=== PATIENT | male | born 1930 | race Caucasian/White ===

== ENCOUNTER 2016-12-09 12:08 | Inpatient (IN) | payer MEDICARE ==
--- NOTE | 2016-12-09 13:04 | ED PDOC ---
HPI: Altered Mental Status Time Seen by Provider: 12/09/16 12:16 Chief Complaint (Nursing): Altered Mental Status History Per: Patient, Family History/Exam Limitations: Clinical Condition Onset/Duration Of Symptoms: Unknown Onset Of Symptoms: Cannot Confirm Onset Description Of Symptoms: Confused Exacerbating Factor(s): Unknown Use Of Anticoag/Antiplatlets: No Severity: Moderate Additional History Per: Family Additional Complaint(s): per family pt lives alone, not taking care of himself, possible dementia, pt arrives covered in feces Past Medical History Reviewed: Historical Data, Nursing Documentation, Vital Signs Vital Signs: Last Vital Signs Temp 98.2 F 12/09/16 12:13 Pulse 112 H 12/09/16 12:13 Resp 16 12/09/16 12:13 BP 144/79 12/09/16 12:13 Pulse Ox 96 12/09/16 12:13 - Family History Family History: States: Unknown Family Hx - Living Arrangements Living Arrangements: Alone - Allergies Allergies/Adverse Reactions: Allergies Allergy/AdvReac Type Severity Reaction Status Date / Time No Known Allergies Allergy Verified 12/09/16 12:12 Review of Systems Review Of Systems: ROS cannot be obtained secondary to pt's inabilty to answer questions. Physical Exam - Reviewed Nursing Documentation Reviewed: Yes Vital Signs Reviewed: Yes - Physical Exam Appears: Positive for: Uncomfortable (unkept covered in feces) Head Exam: Positive for: ATRAUMATIC, NORMAL INSPECTION, NORMOCEPHALIC Eye Exam: Positive for: Normal appearance, EOMI, PERRL Neck: Positive for: Normal, Painless ROM, Supple Cardiovascular/Chest: Positive for: Chest Non Tender, Tachycardia. Negative for : Edema, Gallop, Murmur, Bradycardia Respiratory: Positive for: Normal Breath Sounds. Negative for: Decreased Breath Sounds, Accessory Muscle Use, Crackles, Rales, Rhonchi, Stridor, Wheezing Pulses-Radial (L): 2+ Pulses-Radial (R): 2+ Gastrointestinal/Abdominal: Positive for: Normal Exam, Bowel Sounds, Soft. Negative for: Tenderness Back: Positive for: Normal Inspection. Negative for: L CVA Tenderness, R CVA Tenderness Extremity: Positive for: Normal ROM. 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 Negative for : Motor/Sensory Deficits - Laboratory Results Result Diagrams: 12/09/16 13:20 12/09/16 13:20 - ECG ECG Rhythm: Positive for: Normal QRS, Normal ST Segment, Sinus Tachycardia (104) . Negative for: ST/T Changes O2 Sat by Pulse Oximetry: 96 Pulse Ox Interpretation: Normal - Radiology X-Ray: Interpreted by Mi X-Ray Interpretation: No Acute Disease - Progress ED Course And Treament: will admit for ams, ct head neg. Re-evaluation Time: 17:00 Condition: Unchanged Disposition - Clinical Impression Clinical Impression: Altered mental status - Patient ED Disposition Is Patient to be Admitted: Yes Counseled Patient/Family Regarding: Studies Performed, Diagnosis - Disposition Disposition Time: 15:00 Condition: STABLE - Pt Status Changed To: Hospital Disposition Of: Inpatient - Admit Certification Admit to Inpatient:: After my assessment, the patient will require hospitalization for at least two midnights. This is because of the severity of symptoms shown, intensity of services needed, and/or the medical risk in this patient being treated as an outpatient. - POA Present On Arrival: Poor Glycemic Control
[2016-12-09 13:39] LABS: BASO # 0.1 K/uL (0.0-0.2); BASO % 0.6 % (0.0-2.0); EOS # 0.1 K/uL (0.0-0.7); EOS % 1.6 % (0.0-4.0); HEMOGLOBIN 14.4 g/dL (12.0-18.0); LYMPH # 1.2 K/uL (1.0-4.3); LYMPH % 13.2 % (20.0-40.0); MEAN CELL VOLUME 95.8 fl (80.0-94.0); MEAN CORPUSCULAR HEMOGLOBIN 33.1 pg (27.0-31.0); MEAN CORPUSCULAR HGB CONC 34.6 g/dL (33.0-37.0); MEAN PLATELET VOLUME 9.1 fl (7.2-11.7); MONO # 0.7 K/uL (0.0-0.8); MONO % 8.2 % (0.0-10.0); NEUT # 6.9 K/uL (1.8-7.0); NEUT % 76.4 % (50.0-75.0); RBC 4.34 Mil/uL (4.40-5.90); RED CELL DISTRIBUTION WIDTH 12.9 % (11.5-14.5)
[2016-12-09 13:45] LABS: PROTHROMBIN TIME 11.4 Seconds (9.8-13.1)
[2016-12-09 13:46] LABS: PARTIAL THROMBOPLASTIN TIME 27.4 Seconds (25.6-37.1)
[2016-12-09 13:49] LABS: ALB/GLOB RATIO 1.2 (1.0-2.1); ALBUMIN 3.9 g/dL (3.5-5.0); ALT/SGPT 97 U/L (21-72); AST/SGOT 207 U/L (17-59); BLOOD UREA NITROGEN 24 mg/dl (9-20); CALCIUM 9.4 mg/dL (8.4-10.2); GFR AFRICAN-AMERICAN > 60; GFR NON-AFRICAN AMERICAN > 60; LIPASE 90 U/L (23-300)
[2016-12-09] MEDS ORDERED: Sodium Chloride 0.9% 1,000 ML IV ONE (14:11)
--- NOTE | 2016-12-09 16:52 | CT ---
PROCEDURE: CT HEAD WITHOUT CONTRAST. HISTORY: ams COMPARISON: None available. TECHNIQUE: Axial computed tomography images were obtained through the head/brain without intravenous contrast. Radiation dose: Total exam DLP = 1127.9 mGy-cm. This CT exam was performed using one or more of the following dose reduction techniques: Automated exposure control, adjustment of the mA and/or kV according to patient size, and/or use of iterative reconstruction technique. FINDINGS: HEMORRHAGE: No acute parenchymal, subarachnoid nor extra-axial hemorrhage. BRAIN: Moderate to significant diffuse/ confluent chronic periventricular white matter ischemic changes seen extending peripherally into the deep and subcortical white matter both cerebral hemispheres. There is also some extension of these changes into the white matter tracts of both basal nuclei. Note that the possibility of a small hyperacute infarct cannot be completely excluded Punctate calcifications seen right frontal subcortical white matter nonspecific. Moderate -significant generalized volume loss. VENTRICLES: No obstructive hydrocephalus. CALVARIUM: No acute calvarial fractures. . Extensive vascular calcifications within the scalp consistent with underlying IDDM PARANASAL SINUSES: Visualized paranasal are well-developed and currently well-aerated. . Mild mucosal thickening ethmoid air complex extending superiorly into the frontal sinus. There is also mild lobulated and/or polypoid like mucosal thickening left maxillary sinus. MASTOID AIR CELLS: Unremarkable as visualized. No inflammatory changes. OTHER FINDINGS: Changes of bilateral cataract surgery. . IMPRESSION: Moderate to significant diffuse/ confluent chronic periventricular white matter ischemic changes seen extending peripherally into the deep and subcortical white matter both cerebral hemispheres. There is also some extension of these changes into the white matter tracts of both basal nuclei. Note that the possibility of a small hyperacute infarct cannot be completely excluded Punctate calcifications seen right frontal subcortical white matter nonspecific. Moderate -significant generalized volume loss
[2016-12-09 22:03] LABS: BARBITURATES, UR NEGATIVE (NEGATIVE); BENZODIAZEPINES, UR NEGATIVE (NEGATIVE); OPIATES, UR NEGATIVE (NEGATIVE); PHENCYCLIDINE, UR NEGATIVE (NEGATIVE)
[2016-12-09 22:09] LABS: URINE BILIRUBIN NEGATIVE (NEGATIVE); URINE BLOOD MODERATE (NEGATIVE); URINE CLARITY CLEAR (Clear); URINE COLOR YELLOW (YELLOW); URINE GLUCOSE (UA) >=500 mg/dL (Normal); URINE LEUKOCYTE ESTERASE NEG Leu/uL (Negative); URINE NITRATE NEGATIVE (NEGATIVE); URINE PROTEIN 100 mg/dL (NEGATIVE); URINE UROBILINOGEN 0.2-1.0 mg/dL (0.2-1.0)
--- NOTE | 2016-12-09 22:55 | CARD ---
APPROVED REPORT EKG Measurement Heart [id number] <Conclusion> Sinus tachycardia with occasional premature ventricular complexes Otherwise normal ECG
[2016-12-09] MEDS ORDERED: Sodium Chloride 0.9% 1,000 ML IV SCH (23:45)
[2016-12-10 08:10] LABS: ALB/GLOB RATIO 1.1 (1.0-2.1); ALBUMIN 3.5 g/dL (3.5-5.0); ALT/SGPT 91 U/L (21-72); AST/SGOT 135 U/L (17-59); BLOOD UREA NITROGEN 24 mg/dl (9-20); CALCIUM 8.9 mg/dL (8.4-10.2); GFR AFRICAN-AMERICAN > 60; GFR NON-AFRICAN AMERICAN > 60; HDL CHOLESTEROL 48 MG/DL (30-70)
[2016-12-10 08:13] LABS: HEMOGLOBIN 13.7 g/dL (12.0-18.0); MEAN CELL VOLUME 95.5 fl (80.0-94.0); MEAN CORPUSCULAR HEMOGLOBIN 33.3 pg (27.0-31.0); MEAN CORPUSCULAR HGB CONC 34.9 g/dL (33.0-37.0); RBC 4.11 Mil/uL (4.40-5.90); RED CELL DISTRIBUTION WIDTH 12.8 % (11.5-14.5); WHITE BLOOD COUNT 7.2 K/uL (4.8-10.8)
[2016-12-10 08:21] LABS: LDL CHOLESTEROL 86 mg/dL (0-129)
[2016-12-10] MEDS: Enoxaparin 40 mg Syringe SC SCH (08:46)
[2016-12-10] MEDS: Insulin Regular 100 units/ml SC SCH ×4 (08:48→23:42)
[2016-12-10] MEDS: Bacitracin OINT 15GM TOP SCH ×3 (10:37→16:52)
[2016-12-10] MEDS: Sodium Chloride 0.9% 1,000 ML IV SCH ×2 (13:44→23:42)
--- NOTE | 2016-12-10 16:33 | CP.PCM.CON ---
History of Present Illness - History of Present Illness History of Present Illness: Mr. Martinez is an 86-year-old man with a past medical history of diabetes who was apparently found at home confused and covered in feces in poor living conditions. The patient underwent a CT scan of the head which showed diffuse atrophy and severe ischemic disease that appears to be chronic and likely represents progressive vascular dementia. Neurology was consulted to assist with the management and care. Review of Systems - Review of Systems Systems not reviewed;Unavailable: Altered Mental Status Past Patient History - Past Medical History & Family History Past Medical History?: Yes - Past Social History Smoking Status: Never Smoked - CARDIAC Hx Cardiac Disorders: No - PULMONARY Hx Respiratory Disorders: No - NEUROLOGICAL Hx Neurological Disorder: No - HEENT Hx HEENT Problems: No - RENAL Hx Chronic Kidney Disease: No - ENDOCRINE/METABOLIC Hx Endocrine Disorders: Yes Hx Diabetes Mellitus Type 1: Yes (Family states he is diabetic but does not take meds.) - HEMATOLOGICAL/ONCOLOGICAL Hx Blood Disorders: No - INTEGUMENTARY Hx Dermatological Problems: No - MUSCULOSKELETAL/RHEUMATOLOGICAL Hx Musculoskeletal Disorders: No Hx Falls: Yes - GASTROINTESTINAL Hx Gastrointestinal Disorders: No - GENITOURINARY/GYNECOLOGICAL Hx Genitourinary Disorders: No - PSYCHIATRIC Hx Psychophysiologic Disorder: No Hx Substance Use: No - SURGICAL HISTORY Hx Surgeries: No - ANESTHESIA Hx Anesthesia: No Meds Allergies/Adverse Reactions: Allergies Allergy/AdvReac Type Severity Reaction Status Date / Time No Known Allergies Allergy Verified 12/09/16 12:12 - Medications Medications: Current Medications Aspirin (Ecotrin) 81 mg PO DAILY [facility] Bacitracin (Bacitracin Oint) 1 applic TOP TID [facility] Last Admin: 12/10/16 12:50 Dose: 1 applic Enoxaparin Sodium (Lovenox) 40 mg SC DAILY MALIA PRN Reason: Protocol Last Admin: 12/10/16 08:46 Dose: 40 mg Sodium Chloride (Sodium Chloride 0.9%) 1,000 mls @ 100 mls/hr IV .Q10H [facility] Stop: 12/11/16 13:09 Last Admin: 12/10/16 13:44 Dose: 100 mls/hr Insulin Human Regular (Humulin R) 0 units SC ACCU-CHECK MALIA PRN Reason: Protocol Last Admin: 12/10/16 12:49 Dose: 2 units Lorazepam (Ativan) 0.5 mg IVP Q6 PRN PRN Reason: Agitation Physical Exam - Constitutional Appears: Unkempt - Head Exam Head Exam: ATRAUMATIC, NORMAL INSPECTION, NORMOCEPHALIC - Eye Exam Eye Exam: EOMI, Normal appearance, PERRL - ENT Exam ENT Exam: Mucous Membranes Moist, Normal Exam - Respiratory Exam Respiratory Exam: Clear to Auscultation Bilateral, NORMAL BREATHING PATTERN - Cardiovascular Exam Cardiovascular Exam: REGULAR RHYTHM, +S1, +S2 - GI/Abdominal Exam GI & Abdominal Exam: Normal Bowel Sounds, Soft. absent: Tenderness - Neurological Exam Neurological exam: Abnormal Gait, Altered, CN II-XII Intact - Expanded Neurological Exam Expanded Patient oriented to: person Cranial nerves: EOM's Intact: Normal Cerebellar Function: Finger to Nose: Normal, Heel to Santacruz: Abnormal Left, Abnormal Right Upper motor neuron: Babinski Sign: Abnormal Left, Abnormal Right Sensory exam: Lower Extremity Light Touch: Normal, Lower Extremity Pin Prick: Normal, Upper Extremity Light Touch: Normal, Upper Extremity Pin Prick: Normal Neuro motor strength exam: Left Upper Extremity: 4, Right Upper Extremity: 4, Left Lower Extremity: 4, Right Lower Extremity: 4 DTR: Achilles Tendon Left: 2+, Achilles Tendon Right: 2+, Bicep Left: 2+, Bicep Right: 2+, Brachioradialis Left: 2+, Brachioradialis Right: 2+, Patellar Left: 2 +, Patellar Right: 2+, Tricep Left: 2+, Tricep Right: 2+ - Psychiatric Exam Psychiatric exam: Agitated, Anxious - Skin Skin Exam: Dry, Intact, Normal Color, Warm Results - Vital Signs Recent Vital Signs: Last Vital Signs Temp 98 F 12/10/16 16:23 Pulse 91 H 12/10/16 16:23 Resp 20 12/10/16 16:23 BP 167/96 H 12/10/16 16:23 Pulse Ox 100 12/10/16 16:23 - Labs Result Diagrams: 12/10/16 07:00 12/10/16 07:00 Labs: Laboratory Results - last 24 hr 12/09/16 12/09/16 12/10/16 21:20 21:20 05:13 WBC RBC Hgb Hct MCV MCH MCHC RDW Plt Count Sodium Potassium Chloride Carbon Dioxide Anion Gap BUN Creatinine Est GFR ( Amer) Est GFR (Non-Af Amer) POC Glucose (mg/dL) 215 H Random Glucose Calcium Total Bilirubin AST ALT Alkaline Phosphatase Total Protein Albumin Globulin Albumin/Globulin Ratio Triglycerides Cholesterol LDL Cholesterol Direct HDL Cholesterol Vitamin B12 Urine Color Yellow Urine Clarity Clear Urine pH 6.0 Ur Specific Gratz 1.022 Urine Protein 100 Urine Glucose (UA) >=500 Urine Ketones Trace Urine Blood Moderate Urine Nitrate Negative Urine Bilirubin Negative Urine Urobilinogen 0.2-1.0 Ur Leukocyte Esterase Neg Urine RBC (Auto) 4 H Urine Microscopic WBC 2 Hyaline Casts 3-5 H Urine Opiates Screen Negative Urine Methadone Screen Negative Ur Barbiturates Screen Negative Ur Phencyclidine Scrn Negative Ur Amphetamines Screen Negative U Benzodiazepines Scrn Negative U Oth Cocaine Metabols Negative U Cannabinoids Screen Negative 12/10/16 12/10/16 12/10/16 07:00 07:00 10:52 WBC 7.2 RBC 4.11 L Hgb 13.7 Hct 39.3 MCV 95.5 H MCH 33.3 H MCHC 34.9 RDW 12.8 Plt Count 152 Sodium 140 Potassium 3.4 L Chloride 100 Carbon Dioxide 32 H Anion Gap 11 BUN 24 H Creatinine 0.9 Est GFR ( Amer) > 60 Est GFR (Non-Af Amer) > 60 POC Glucose (mg/dL) 170 H Random Glucose 185 H Calcium 8.9 Total Bilirubin 0.8 AST 135 H D ALT 91 H Alkaline Phosphatase 52 Total Protein 6.7 Albumin 3.5 Globulin 3.2 Albumin/Globulin Ratio 1.1 Triglycerides 119 Cholesterol 168 LDL Cholesterol Direct 86 HDL Cholesterol 48 Vitamin B12 637 Urine Color Urine Clarity Urine pH Ur Specific Gratz Urine Protein Urine Glucose (UA) Urine Ketones Urine Blood Urine Nitrate Urine Bilirubin Urine Urobilinogen Ur Leukocyte Esterase Urine RBC (Auto) Urine Microscopic WBC Hyaline Casts Urine Opiates Screen Urine Methadone Screen Ur Barbiturates Screen Ur Phencyclidine Scrn Ur Amphetamines Screen U Benzodiazepines Scrn U Oth Cocaine Metabols U Cannabinoids Screen - Imaging and Cardiology CT scan - head Status: Image reviewed by me, Report reviewed by me (Advanced atrophy and ischemic changes with enlarged temporal horns.) Assessment & Plan (1) Dementia Assessment and Plan: The abrupt changes in his mental status and the CT scan findings are suggestive of vascular dementia, but this could also be acute encephalopathy due to deteriorating condition or Alzheimer type dementia. MRI and MRA of the brain without contrast is recommended. Start aspirin 81 mg daily for cerebrovascular protection. Check lipids, HbA1c, TSH, B12, folate. Fluids with NS at 100 mL/ hr. DVT Px. PT/OT/ST and cognitive therapy are recommended. Thank you. Status: Acute Priority: High
--- NOTE | 2016-12-10 21:55 | HP ---
CHIEF COMPLAINT: Found in disheveled condition and altered mental status by family. HISTORY OF PRESENT ILLNESS: This is an 86-year-old male who lives alone and is not taking care of hi mself very well and has apparently a history of dementia and hypertension, but has not seek medical c are for more than 10 years as per family, who was covered in his feces in his house and found with al tered mental status. The patient was brought to the Emergency Room by family and was admitted for fu rther management. REVIEW OF SYSTEMS: At this time is negative for headache, dizziness, syncope, loss of consciousness, chest pain, shortness of breath, nausea, vomiting, diarrhea, constipation, any new joint or extremit y pain or any weakness. Review of systems of all other organ systems is unremarkable. PAST MEDICAL HISTORY: Apparently significant for dementia and hypertension. PAST SURGICAL HISTORY: Unremarkable. PERSONAL HISTORY: The patient is living alone. Denies smoking, alcohol or substance abuse. MEDICATIONS: The patient is not on any medications. ALLERGIES: The patient is apparently not allergic to any medication. FAMILY HISTORY: Noncontributory. PHYSICAL EXAMINATION: GENERAL: Well-built, well-nourished 86-year-old male in no acute distress. VITAL SIGNS: Temperature 98.2, pulse 96, respiration 18, blood pressure 156/85, saturation 97%. HEENT: Pupils reacting to light. NECK: No JVD, no thyromegaly, no lymphadenopathy, no nystagmus. Normocephalic, atraumatic skull. HEART: S1, S2 normal, regular. No significant murmur, gallop or rub is heard. LUNGS: Shows good bilateral air entry. No rales or rhonchi. ABDOMEN: Soft, nontender, no organomegaly, no fluid. Bowel sounds are plus. EXTREMITIES: No edema, no calf swelling, no tenderness. No acute ischemia. CENTRAL NERVOUS SYSTEM: The patient is awake, responsive, alert, cooperative, follows command. SKIN: Shows superficial excoriation on back, mainly , no sign of cellulitis, but does have open areas with stage II ulcers on spine and upper back on both sides. CENTRAL NERVOUS SYSTEM: The patient is awake, responsive, cooperative, follows commands, is disorien saum[place], but moves all extremities and there is no sign of any acute gross focal motor or sensory neurolo gical deficit. DIAGNOSTIC DATA: Available diagnostic data reviewed. Urine toxicology is negative. Urinalysis is u nremarkable. SMA-12 is unremarkable. Sodium 140, potassium 3.4, chloride 100, bicarbonate 32, BUN 2 4, creatinine 0.9. Accu-Cheks are 215, 172, 120. AST is 135, ALT is 91, WBC , hemoglobin 13.7, hematocrit 39.3, platelets 152. EKG shows sinus tachycardia with some APCs, but no acute ST-T valera es. 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 ADMITTING IMPRESSION: Altered mental status, dementia, mild dehydration. PLAN: As ordered. Moris hSort MD cc: [id number] TT: 12/10/2016 21:54:36 rubén
[2016-12-11] MEDS: Insulin Regular 100 units/ml SC SCH ×4 (06:04→23:16)
[2016-12-11 06:12] LABS: HEMOGLOBIN 13.4 g/dL (12.0-18.0); MEAN CELL VOLUME 95.6 fl (80.0-94.0); MEAN CORPUSCULAR HEMOGLOBIN 33.3 pg (27.0-31.0); MEAN CORPUSCULAR HGB CONC 34.8 g/dL (33.0-37.0); RBC 4.02 Mil/uL (4.40-5.90); RED CELL DISTRIBUTION WIDTH 12.6 % (11.5-14.5); WHITE BLOOD COUNT 5.6 K/uL (4.8-10.8)
[2016-12-11 06:24] LABS: ALBUMIN 3.2 g/dL (3.5-5.0); ALT/SGPT 78 U/L (21-72); AST/SGOT 77 U/L (17-59); BLOOD UREA NITROGEN 23 mg/dl (9-20); CALCIUM 8.4 mg/dL (8.4-10.2); GFR AFRICAN-AMERICAN > 60; GFR NON-AFRICAN AMERICAN > 60
--- NOTE | 2016-12-11 09:19 | PN ---
DATE: 12/11/2016 The patient is seen and examined. Interim events noted. Consults noted and appreciated. Neurology followup and intervention noted and appreciated. The patient remains on the regular medical floor wi th 1:1 observation. The patient feels okay. Denies any specific complaint. No chest pain, no short ness of breath. Denies any new pain. PHYSICAL EXAMINATION: GENERAL: The patient is in no acute distress. VITAL SIGNS: Stable, although the blood pressure remains elevated. HEART: S1, S2 normal, regular. LUNGS: Good bilateral air entry. ABDOMEN: Soft, nontender. EXTREMITIES: No edema, no calf swelling, no tenderness, no acute ischemia. CENTRAL NERVOUS SYSTEM: Essentially unchanged. SKIN: Excoriation remains uncomplicated. DIAGNOSTIC DATA: Available diagnostic data reviewed. Accu-Cheks remain elevated. Overall, the patient is clinically stable. PLAN: As ordered. Moris Short MD cc: [id number] TT: 12/11/2016 09:18:29 Confirmation # [id number] Dictation # [id number] juan
[2016-12-11] MEDS: Enoxaparin 40 mg Syringe SC SCH (09:22)
[2016-12-11] MEDS: Bacitracin OINT 15GM TOP SCH ×3 (09:22→16:34)
[2016-12-11] MEDS: Sodium Chloride 0.9% 1,000 ML IV SCH (09:25)
[2016-12-11] MEDS ORDERED: Potassium Chloride 20 mEq ER Tab PO ONE (10:12)
--- NOTE | 2016-12-11 14:41 | PQF GENQUE ---
Dr. Short, Please clarify the underlying cause of patient's altered mental status and relate that cause to the alteration in mental status: if known after the work up is completed Cardiac condition Electrolyte/metabolic imbalance Infectious process Neurologic condition Psychiatric condition Respiratory condition Other condition (please specify) Unable to determine Unknown Neuro consult:Psychiatric exam: Agitated, Anxious Impression:Dementia :The abrupt changes in his mental status and the CT scan findings are suggestive of vascular dementia , but this could also be acute encephalopathy due to deteriorating condition or Alzheimer type dementia. MRI and MRA of the brain without contrast is recommended. Start aspirin 81 mg daily for cerebrovascular protection. Check lipids, HbA1c, TSH, B12, folate. Fluids with NS at 100 mL/hr. DVT Px. PT/OT/ST and cognitive therapy are recommended. This form is a permanent part of the medical record Clarification of your documentation is requested to better reflect the severity of illness and intensity of treatment of your patient. Indicators present [] Specify: [] [] Specify: [] [] Specify: [] [] Specify: [] Location in the medical record that reflects the above clinical findings: [] Treatment Provided: [] PHYSICIAN'S RESPONSE Based on your medical judgment of the clinical indicators outlined above please clarify the following: [] Practitioner response [] If unable to determine, please check the box, sign and date. Present On Admission (POA) Indicator: [] Present at the time of admission [] Not present at the time of admission [] Clinically Undetermined In responding to this query, please exercise your independent professional judgment. The fact that a question is asked does not imply that any particular answer is desired or expected. Thank you for your clarification on this documentation. If you have any questions please call. * Thank you, Donya Fong RN BSN ext. #[phone] MTDD
[2016-12-11] MEDS: Vitamins A & D Oint UD Foilpak TOP SCH (16:34)
[2016-12-12] MEDS: Insulin Regular 100 units/ml SC SCH ×4 (06:46→23:00)
[2016-12-12 07:31] LABS: MEAN CELL VOLUME 95.5 fl (80.0-94.0); MEAN CORPUSCULAR HEMOGLOBIN 33.9 pg (27.0-31.0); MEAN CORPUSCULAR HGB CONC 35.5 g/dL (33.0-37.0); RBC 3.84 Mil/uL (4.40-5.90); RED CELL DISTRIBUTION WIDTH 12.8 % (11.5-14.5); WHITE BLOOD COUNT 5.1 K/uL (4.8-10.8)
[2016-12-12 07:42] LABS: ALBUMIN 3.2 g/dL (3.5-5.0); ALT/SGPT 73 U/L (21-72); AST/SGOT 53 U/L (17-59); BLOOD UREA NITROGEN 22 mg/dl (9-20); CALCIUM 8.7 mg/dL (8.4-10.2); GFR AFRICAN-AMERICAN > 60; GFR NON-AFRICAN AMERICAN > 60
[2016-12-12 08:36] VITALS: RESP 20
--- NOTE | 2016-12-12 08:41 | PQF GENQUE ---
Dr. 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 and: POA? OR: Unable to determine OR: Other explanation of clinical findings H and P: remains in draft: SKIN: Shows superficial excoriation on back, mainly _ ____, no sign of cellulitis, but does have open areas with stage II ulcers on spine and upper back on both sides 12/09/16@22:00:Admission Nurses notes: Pressure ulcer POA: Yes 12/11@21:00: Nurses Note: partial thickness dermis ulcer left dorsal foot 12/11/16: Wound RN: MULTIPLE AREAS OF SKIN BREAKDOWN. ASSESSMENT REVEALED, ENTIRE BACK WITH MULTIPLE HEALED AND HEALING SKIN TEARS, NO DRAINAGE, NO ODOR. RECOMMENDING TO START VITAMIN A&D OINTMENT TO ENTIRE BACK TWICE DAILY A PROTECTIVE MEASURE. ASSESSED LEFT KNEE; FOUND DRY PEELING SCAB, NO DRAINAGE, NO ODOR, RECOMMENDING TO APPLY MEDIHONEY, THEN COVERING WITH DRY DRESSING DAILY. ASSESSED BOTH LEFT GREAT TOE, DORSAL ASPECT, AND LEFT 1ST MET HEAD, DORSAL ASPECT AND FOUND DIABETIC ULCER, DRY RED BASES. RECOMMENDING TO START MEDIHONEY, THEN COVERING WITH DRY DRESSINGS DAILY. ASSESSED TO BILATERAL LOWER EXTREMETIES, INCLUDING TOES AND FOUND DIFFUSE DRY SCABS. This form is a permanent part of the medical record Clarification of your documentation is requested to better reflect the severity of illness and intensity of treatment of your patient. Indicators present [] Specify: [] [] Specify: [] [] Specify: [] [] Specify: [] Location in the medical record that reflects the above clinical findings: [] Treatment Provided: [] PHYSICIAN'S RESPONSE Based on your medical judgment of the clinical indicators outlined above please clarify the following: [] Practitioner response [] If unable to determine, please check the box, sign and date. Present On Admission (POA) Indicator: [] Present at the time of admission [] Not present at the time of admission [] Clinically Undetermined In responding to this query, please exercise your independent professional judgment. The fact that a question is asked does not imply that any particular answer is desired or expected. Thank you for your clarification on this documentation. If you have any questions please call. * Thank you, Donya Fong RN BSN ext. #[phone] MTDD
--- NOTE | 2016-12-12 08:46 | CP.PCM.CON ---
History of Present Illness - History of Present Illness History of Present Illness: Psychiatry consult CC: "I'm okay" HPI: 86-year-old Armenian man with a past medical history of diabetes, no past psychiatric history who was apparently found at home confused and covered in feces in poor living conditions. The patient underwent a CT scan of the head which showed diffuse atrophy and severe ischemic disease that appears to be chronic and likely represents progressive vascular dementia. Patient denies psychiatric symptoms to manual writer. No depression/anxiety/hallucinations/delusions/ paranoia/shun. PPHx: No past psychiatric history. PMHx: Diabetes, likely dementia ALL: NKDA SHx: . Denies drugs/etoh use. MSE: A + O x 2 (not oriented to date), calm/cooperative, speech accented, mood "okay", affect- broad, thought process- linear/coherent, thought content- no delusions, NO hallucinations/delusions. NO SI/HI. Insight/judgment- fair. Impulse control-good Impression: 86 yo male w/ h/o diabetes, no current past psychiatric history, likely w/ vascular dementia. No acute psychiatric issues at this time. -No acute psychiatric admission indicated -No acute psychotropic medications needed -Avoid benzodiazepines as they are likely to worsen his confusion -If patient has late-day confusion (sun-downing), can give Seroquel 25 mg PO Daily @1700 or Risperdal 0.5 mg PO Daily@1700 -Re-consult w/ further questions Past Patient History - Past Medical History & Family History Past Medical History?: Yes - Past Social History Smoking Status: Never Smoked - CARDIAC Hx Cardiac Disorders: No - PULMONARY Hx Respiratory Disorders: No - NEUROLOGICAL Hx Neurological Disorder: No - HEENT Hx HEENT Problems: No - RENAL Hx Chronic Kidney Disease: No - ENDOCRINE/METABOLIC Hx Endocrine Disorders: Yes Hx Diabetes Mellitus Type 1: Yes (Family states he is diabetic but does not take meds.) - HEMATOLOGICAL/ONCOLOGICAL Hx Blood Disorders: No - INTEGUMENTARY Hx Dermatological Problems: No - MUSCULOSKELETAL/RHEUMATOLOGICAL Hx Musculoskeletal Disorders: No Hx Falls: Yes - GASTROINTESTINAL Hx Gastrointestinal Disorders: No - GENITOURINARY/GYNECOLOGICAL Hx Genitourinary Disorders: No - PSYCHIATRIC Hx Psychophysiologic Disorder: No Hx Substance Use: No - SURGICAL HISTORY Hx Surgeries: No - ANESTHESIA Hx Anesthesia: No Meds Allergies/Adverse Reactions: Allergies Allergy/AdvReac Type Severity Reaction Status Date / Time No Known Allergies Allergy Verified 12/09/16 12:12 - Medications Medications: Current Medications Aspirin (Ecotrin) 81 mg PO DAILY [facility] Last Admin: 12/11/16 09:22 Dose: 81 mg Bacitracin (Bacitracin Oint) 1 applic TOP TID [facility] Last Admin: 12/11/16 16:34 Dose: 1 applic Enoxaparin Sodium (Lovenox) 40 mg SC DAILY [facility] PRN Reason: Protocol Last Admin: 12/11/16 09:22 Dose: 40 mg Insulin Human Regular (Humulin R) 0 units SC ACCU-CHECK [facility] PRN Reason: Protocol Last Admin: 12/12/16 06:46 Dose: 3 units Lisinopril (Zestril) 10 mg PO DAILY [facility] Lorazepam (Ativan) 0.5 mg IVP Q6 PRN PRN Reason: Agitation Last Admin: 12/11/16 14:14 Dose: 0.5 mg Metformin HCl (Glucophage) 1,000 mg PO BIDWM [facility] Vitamin A (Vitamin A & D Oint Ud Foilpak) 1 ea TOP BID [facility] Last Admin: 12/11/16 16:34 Dose: 1 ea Results - Vital Signs Recent Vital Signs: Last Vital Signs Temp 97.6 F 12/12/16 08:36 Pulse 78 12/12/16 08:36 Resp 20 12/12/16 08:36 BP 134/80 12/12/16 08:36 Pulse Ox 97 12/12/16 08:36 - Labs Result Diagrams: 12/12/16 05:45 12/12/16 05:45 Labs: Laboratory Results - last 24 hr 12/10/16 12/11/16 12/11/16 07:00 11:24 15:56 WBC RBC Hgb Hct MCV MCH MCHC RDW Plt Count Sodium Potassium Chloride Carbon Dioxide Anion Gap BUN Creatinine Est GFR ( Amer) Est GFR (Non-Af Amer) POC Glucose (mg/dL) 231 H 221 H Random Glucose Hemoglobin A1c 9.2 H Calcium Total Bilirubin AST ALT Alkaline Phosphatase Total Protein Albumin Globulin Albumin/Globulin Ratio 12/11/16 12/12/16 12/12/16 21:09 05:45 05:45 WBC 5.1 RBC 3.84 L Hgb 13.0 Hct 36.7 MCV 95.5 H MCH 33.9 H MCHC 35.5 RDW 12.8 Plt Count 152 Sodium 138 Potassium 3.8 Chloride 103 Carbon Dioxide 28 Anion Gap 11 BUN 22 H Creatinine 0.7 L Est GFR ( Amer) > 60 Est GFR (Non-Af Amer) > 60 POC Glucose (mg/dL) 228 H Random Glucose 231 H Hemoglobin A1c Calcium 8.7 Total Bilirubin 0.5 AST 53 ALT 73 H Alkaline Phosphatase 47 Total Protein 6.4 Albumin 3.2 L Globulin 3.2 Albumin/Globulin Ratio 1.0
[2016-12-12] MEDS: Bacitracin OINT 15GM TOP SCH ×3 (08:47→17:02)
[2016-12-12] MEDS: Enoxaparin 40 mg Syringe SC SCH (08:49)
[2016-12-12] MEDS: Vitamins A & D Oint UD Foilpak TOP SCH ×2 (08:49→17:06)
--- NOTE | 2016-12-12 15:36 | CP.PCM.PN ---
Subjective - Date & Time of Evaluation Date of Evaluation: 12/12/16 - Subjective Subjective: The patient is seen and examined. Interim events noted. Consults noted and appreciated. Neurology followup and intervention noted and appreciated. The patient remains on the regular medical floor with 1:1 observation. The patient feels okay. Denies any specific complaint. No chest pain, no shortness of breath. Denies any new pain. PHYSICAL EXAMINATION: GENERAL: The patient is in no acute distress. VITAL SIGNS: Stable, although the blood pressure remains elevated. HEART: S1, S2 normal, regular. LUNGS: Good bilateral air entry. ABDOMEN: Soft, nontender. EXTREMITIES: No edema, no calf swelling, no tenderness, no acute ischemia. CENTRAL NERVOUS SYSTEM: Essentially unchanged. SKIN: Excoriation healing DIAGNOSTIC DATA: Available diagnostic data reviewed. Accu-Cheks remain elevated. Over all pt is stable. Pllan: as ordered Objective - Vital Signs/Intake and Output Vital Signs (last 24 hours): Temp Pulse Resp BP Pulse Ox 97.6 F 78 20 134/80 97 12/12/16 08:36 12/12/16 08:36 12/12/16 08:36 12/12/16 08:55 12/12/16 08:36 - Medications Medications: Current Medications Aspirin (Ecotrin) 81 mg PO DAILY [facility] Last Admin: 12/12/16 08:47 Dose: 81 mg Bacitracin (Bacitracin Oint) 1 applic TOP TID [facility] Last Admin: 12/12/16 12:21 Dose: 1 applic Enoxaparin Sodium (Lovenox) 40 mg SC DAILY [facility] PRN Reason: Protocol Last Admin: 12/12/16 08:49 Dose: 40 mg Insulin Human Regular (Humulin R) 0 units SC ACCU-CHECK [facility] PRN Reason: Protocol Last Admin: 12/12/16 12:26 Dose: 4 units Lisinopril (Zestril) 10 mg PO DAILY [facility] Last Admin: 12/12/16 08:55 Dose: 10 mg Metformin HCl (Glucophage) 1,000 mg PO BIDWM [facility] Last Admin: 12/12/16 08:48 Dose: 1,000 mg Vitamin A (Vitamin A & D Oint Ud Foilpak) 1 ea TOP BID [facility] Last Admin: 12/12/16 08:49 Dose: 1 ea - Labs Labs: 12/12/16 05:45 12/12/16 05:45 PT 11.4 Seconds (9.8-13.1) 12/09/16 13:20 INR 1.0 (0.9-1.2) 12/09/16 13:20 APTT 27.4 Seconds (25.6-37.1) 12/09/16 13:20
--- NOTE | 2016-12-12 16:50 | RAD ---
HISTORY: Admission COMPARISON: No prior. FINDINGS: LUNGS: Mild bibasilar atelectasis and or scarring right greater than left. Questionable small bilateral effusions right larger than left. Note that the medial lung apices are partially obscured by overlying facial soft tissue and mandible artifact. PLEURA: No significant pleural effusion identified, no pneumothorax apparent. CARDIOVASCULAR: Heart size is upper limits of normal. OSSEOUS STRUCTURES: Mild degenerative osteoarthritis both shoulder girdles. Minor multilevel degenerative spondylosis of the thoracic spine VISUALIZED UPPER ABDOMEN: Normal. OTHER FINDINGS: None. IMPRESSION: Mild bibasilar atelectasis or scarring. Questionable small bilateral effusions right greater than left.
--- NOTE | 2016-12-12 17:54 | RAD ---
PROCEDURE: Left Knee Radiographs. HISTORY: Pain. COMPARISON: None. FINDINGS: BONES: No evidence of acute displaced fracture nor dislocation JOINTS: There appears to be faint calcifications seen in the lateral joint space margin which could be secondary to chondrocalcinosis; rule out CPPD. Minimal medial joint space narrowing. JOINT EFFUSION: Questionable trace joint effusion OTHER FINDINGS: None. IMPRESSION: No evidence of acute displaced fracture nor dislocation. . Questionable chondrocalcinosis lateral joint space ; rule out CPPD
[2016-12-13] MEDS: Insulin Regular 100 units/ml SC SCH ×4 (06:43→22:52)
--- NOTE | 2016-12-13 08:05 | CP.PCM.PN ---
<LesRenee - Last Filed: 12/13/16 12:03> Subjective - Date & Time of Evaluation Date of Evaluation: 12/13/16 Time of Evaluation: 06:30 - Subjective Subjective: Patient seen and examined at bedside with attending. Overnight events noted 86M without acute complaint, denies any SOB, chest pain. Knows he is in [place] but is not oriented to time. Objective - Vital Signs/Intake and Output Vital Signs (last 24 hours): Temp Pulse Resp BP Pulse Ox 36.4 C L 79 20 170/96 H 96 12/13/16 07:35 12/13/16 07:35 12/13/16 07:35 12/13/16 07:35 12/13/16 07:35 - Medications Medications: Current Medications Aspirin (Ecotrin) 81 mg PO DAILY [facility] Last Admin: 12/12/16 08:47 Dose: 81 mg Bacitracin (Bacitracin Oint) 1 applic TOP TID [facility] Last Admin: 12/12/16 17:02 Dose: 1 applic Enoxaparin Sodium (Lovenox) 40 mg SC DAILY [facility] PRN Reason: Protocol Last Admin: 12/12/16 08:49 Dose: 40 mg Insulin Human Regular (Humulin R) 0 units SC ACCU-CHECK [facility] PRN Reason: Protocol Last Admin: 12/13/16 06:43 Dose: 2 units Lisinopril (Zestril) 20 mg PO DAILY [facility] Lorazepam (Ativan) 1 mg IVP Q6 PRN PRN Reason: Agitation Last Admin: 12/12/16 19:44 Dose: 1 mg Metformin HCl (Glucophage) 1,000 mg PO BIDWM [facility] Last Admin: 12/12/16 17:03 Dose: 1,000 mg Vitamin A (Vitamin A & D Oint Ud Foilpak) 1 ea TOP BID [facility] Last Admin: 12/12/16 17:06 Dose: 1 ea - Labs Labs: 12/12/16 05:45 12/12/16 05:45 PT 11.4 Seconds (9.8-13.1) 12/09/16 13:20 INR 1.0 (0.9-1.2) 12/09/16 13:20 APTT 27.4 Seconds (25.6-37.1) 12/09/16 13:20 - Constitutional Appears: Non-toxic, No Acute Distress - Head Exam Head Exam: NORMOCEPHALIC - Eye Exam Eye Exam: EOMI, PERRL - ENT Exam ENT Exam: Mucous Membranes Moist, Normal Exam - Neck Exam Neck Exam: Normal Inspection - Respiratory Exam Respiratory Exam: Clear to Ausculation Bilateral, NORMAL BREATHING PATTERN. absent: Rales, Wheezes - Cardiovascular Exam Cardiovascular Exam: REGULAR RHYTHM. absent: JVD - GI/Abdominal Exam GI & Abdominal Exam: Soft, Normal Bowel Sounds. absent: Tenderness - Neurological Exam Neurological Exam: Alert, Awake. absent: Oriented x3 (Not oriented to time) - Psychiatric Exam Psychiatric exam: absent: Agitated (At times agitated, requires sitter) - Skin Skin Exam: Normal Color, Warm Assessment and Plan - Assessment and Plan (Free Text) Assessment: 86M admitted after being found at home confused and covered in feces. Work-up has been most consistent with progressive vascular dementia. Patient unable to tolerate MRI/MRA at this time and requires placement in residential rehab. - Neurology Consult appreciated - DM: Metformin 1000, PO, BIDWM (A1C- 9.2) - Dementia: Seroquel started, Patient on 1:1 - HTN: Lisinopril increased this AM - DVT Prophylaxis: Lovenox <Short,Moris K - Last Filed: 12/22/16 16:00> Objective - Vital Signs/Intake and Output Vital Signs (last 24 hours): Temp Pulse Resp BP Pulse Ox 98.6 F 77 20 164/83 H 98 12/15/16 10:00 12/15/16 10:03 12/15/16 07:23 12/15/16 10:03 12/15/16 07:23 - Labs Labs: 12/15/16 05:20 12/15/16 05:20 PT 11.4 Seconds (9.8-13.1) 12/09/16 13:20 INR 1.0 (0.9-1.2) 12/09/16 13:20 APTT 27.4 Seconds (25.6-37.1) 12/09/16 13:20 Assessment and Plan - Assessment and Plan (Free Text) Assessment: Patient was personally seen and examined by me in rounds with residents. Available labs and diagnostic data reviewed. Case, patient's condition and management plan discussed with residents in rounds. Agree with resident's progress note. Plan: As ordered.
[2016-12-13] MEDS: Vitamins A & D Oint UD Foilpak TOP SCH ×2 (08:33→16:45)
[2016-12-13] MEDS: Enoxaparin 40 mg Syringe SC SCH (08:34)
[2016-12-13] MEDS: Bacitracin OINT 15GM TOP SCH ×3 (08:34→16:48)
[2016-12-14] MEDS: Insulin Regular 100 units/ml SC SCH ×3 (06:41→17:10)
--- NOTE | 2016-12-14 06:43 | CP.PCM.PN ---
<LesRenee - Last Filed: 12/14/16 11:17> Subjective - Date & Time of Evaluation Date of Evaluation: 12/14/16 Time of Evaluation: 06:43 - Subjective Subjective: Patient seen and examined at bedside with attending. 86M remains pleasant but only oriented to person and place. He denies any SOB, chest pain, N/V, abdominal pain. Objective - Vital Signs/Intake and Output Vital Signs (last 24 hours): Temp Pulse Resp BP Pulse Ox 36.3 C L 81 20 159/96 H 99 12/14/16 00:31 12/14/16 00:31 12/14/16 00:31 12/14/16 00:31 12/14/16 00:31 - Medications Medications: Current Medications Aspirin (Ecotrin) 81 mg PO DAILY [facility] Last Admin: 12/13/16 08:34 Dose: 81 mg Bacitracin (Bacitracin Oint) 1 applic TOP TID [facility] Last Admin: 12/13/16 16:48 Dose: 1 applic Enoxaparin Sodium (Lovenox) 40 mg SC DAILY [facility] PRN Reason: Protocol Last Admin: 12/13/16 08:34 Dose: 40 mg Insulin Human Regular (Humulin R) 0 units SC ACCU-CHECK [facility] PRN Reason: Protocol Last Admin: 12/14/16 06:41 Dose: Not Given Lisinopril (Zestril) 20 mg PO DAILY [facility] Last Admin: 12/13/16 08:37 Dose: 20 mg Lorazepam (Ativan) 1 mg IVP Q6 PRN PRN Reason: Agitation Last Admin: 12/12/16 19:44 Dose: 1 mg Metformin HCl (Glucophage) 1,000 mg PO BIDWM [facility] Last Admin: 12/13/16 16:49 Dose: 1,000 mg Quetiapine Fumarate (Seroquel) 25 mg PO QPM [facility] Last Admin: 12/13/16 17:02 Dose: Not Given Vitamin A (Vitamin A & D Oint Ud Foilpak) 1 ea TOP BID [facility] Last Admin: 12/13/16 16:45 Dose: 1 ea - Labs Labs: 12/12/16 05:45 12/12/16 05:45 PT 11.4 Seconds (9.8-13.1) 12/09/16 13:20 INR 1.0 (0.9-1.2) 12/09/16 13:20 APTT 27.4 Seconds (25.6-37.1) 12/09/16 13:20 - Constitutional Appears: Well, Non-toxic, No Acute Distress - Head Exam Head Exam: ATRAUMATIC, NORMAL INSPECTION - Eye Exam Eye Exam: EOMI, PERRL - ENT Exam ENT Exam: Mucous Membranes Moist, Normal Exam - Respiratory Exam Respiratory Exam: Clear to Ausculation Bilateral, NORMAL BREATHING PATTERN. absent: Rales, Wheezes - Cardiovascular Exam Cardiovascular Exam: REGULAR RHYTHM. absent: JVD - GI/Abdominal Exam GI & Abdominal Exam: Soft, Normal Bowel Sounds. absent: Tenderness - Extremities Exam Extremities Exam: absent: Pedal Edema - Neurological Exam Neurological Exam: Awake - Psychiatric Exam Psychiatric exam: Normal Mood - Skin Skin Exam: Normal Color, Warm Assessment and Plan - Assessment and Plan (Free Text) Assessment: Patient unable to tolerate MRI/MRA at this time. Patient appears calm after being started on Seroquel and will need a trial without 1:1 in order to find placement if tolerated. - Neurology Consult appreciated - DM: Metformin 1000, PO, BIDWM (A1C- 9.2) - Dementia: Seroquel started, d/c 1:1 - HTN: Lisinopril increased this AM to 40mg Daily - DVT Prophylaxis: Lovenox <Short,Moris K - Last Filed: 12/22/16 16:08> Objective - Vital Signs/Intake and Output Vital Signs (last 24 hours): Temp Pulse Resp BP Pulse Ox 98.6 F 77 20 164/83 H 98 12/15/16 10:00 12/15/16 10:03 12/15/16 07:23 12/15/16 10:03 12/15/16 07:23 - Labs Labs: 12/15/16 05:20 12/15/16 05:20 PT 11.4 Seconds (9.8-13.1) 12/09/16 13:20 INR 1.0 (0.9-1.2) 12/09/16 13:20 APTT 27.4 Seconds (25.6-37.1) 12/09/16 13:20 Assessment and Plan - Assessment and Plan (Free Text) Assessment: Patient was personally seen and examined by me in rounds with residents. Available labs and diagnostic data reviewed. Case, patient's condition and management plan discussed with residents in rounds. Agree with resident's progress note. Plan: As ordered.
[2016-12-14] MEDS: Enoxaparin 40 mg Syringe SC SCH (09:00)
[2016-12-14] MEDS: Bacitracin OINT 15GM TOP SCH ×3 (09:01→17:38)
[2016-12-14] MEDS: Vitamins A & D Oint UD Foilpak TOP SCH ×2 (09:01→17:38)
--- NOTE | 2016-12-14 11:51 | CP.PCM.CON ---
History of Present Illness - History of Present Illness History of Present Illness: 86 y/o male with PMHx of DM, altered mental status and vascular dementia s/p is seen by podiatry on the floors after being consulted for elongated toenails. Pt was found at home confused and covered in feces and brought into the hospital on 12/09/16. Upon examination, patient was found to have a superficial ulceration on the plantar aspect of his left foot. Pt is resting comfortably in bedside chair and has no complaints of pain at this time. Patient is an unreliable historian due to altered mental status. Patient has no known drug allergies. Patient has no known surgical history. Review of Systems - Review of Systems All systems: reviewed and no additional remarkable complaints except (per HPI) Past Patient History - Past Medical History & Family History Past Medical History?: Yes - Past Social History Smoking Status: Never Smoked - CARDIAC Hx Cardiac Disorders: No - PULMONARY Hx Respiratory Disorders: No - NEUROLOGICAL Hx Neurological Disorder: No - HEENT Hx HEENT Problems: No - RENAL Hx Chronic Kidney Disease: No - ENDOCRINE/METABOLIC Hx Endocrine Disorders: Yes Hx Diabetes Mellitus Type 1: Yes (Family states he is diabetic but does not take meds.) - HEMATOLOGICAL/ONCOLOGICAL Hx Blood Disorders: No - INTEGUMENTARY Hx Dermatological Problems: No - MUSCULOSKELETAL/RHEUMATOLOGICAL Hx Musculoskeletal Disorders: No Hx Falls: Yes - GASTROINTESTINAL Hx Gastrointestinal Disorders: No - GENITOURINARY/GYNECOLOGICAL Hx Genitourinary Disorders: No - PSYCHIATRIC Hx Psychophysiologic Disorder: No Hx Substance Use: No - SURGICAL HISTORY Hx Surgeries: No - ANESTHESIA Hx Anesthesia: No Meds Allergies/Adverse Reactions: Allergies Allergy/AdvReac Type Severity Reaction Status Date / Time No Known Allergies Allergy Verified 12/09/16 12:12 - Medications Medications: Current Medications Aspirin (Ecotrin) 81 mg PO DAILY [facility] Last Admin: 12/14/16 09:01 Dose: 81 mg Bacitracin (Bacitracin Oint) 1 applic TOP TID [facility] Last Admin: 12/14/16 09:01 Dose: 1 applic Enoxaparin Sodium (Lovenox) 40 mg SC DAILY [facility] PRN Reason: Protocol Last Admin: 12/14/16 09:00 Dose: 40 mg Insulin Human Regular (Humulin R) 0 units SC ACCU-CHECK [facility] PRN Reason: Protocol Last Admin: 12/14/16 06:41 Dose: Not Given Lisinopril (Zestril) 40 mg PO DAILY [facility] Last Admin: 12/14/16 09:00 Dose: 40 mg Lorazepam (Ativan) 1 mg IVP Q6 PRN PRN Reason: Agitation Last Admin: 12/12/16 19:44 Dose: 1 mg Metformin HCl (Glucophage) 1,000 mg PO BIDWM [facility] Last Admin: 12/14/16 09:02 Dose: 1,000 mg Quetiapine Fumarate (Seroquel) 25 mg PO QPM [facility] Last Admin: 12/13/16 17:02 Dose: Not Given Vitamin A (Vitamin A & D Oint Ud Foilpak) 1 ea TOP BID [facility] Last Admin: 12/14/16 09:01 Dose: 1 ea Physical Exam - Constitutional Appears: Well, Non-toxic, No Acute Distress - Extremities Exam Additional comments: Lower extremity focused examination: Vasc: DP/PT 2/4 B/L. Temperature gradient WNL. CFT < 3 sec to all digits. No pedal edema. Neuro: Unable to obtain due to altered mental status Derm: Superficial 1.5cm diameter circular ulceration present sub met 1 L foot. Sanguinous drainage noted from wound bed. Wound base is 90% granular, 10% fibrotic. No purulence, no malodor, no fluctuance, no surrounding erythema, no cellulitis, no probe to bone, no clinical signs of infection. Elongated dystrophic toenails x 10. Ortho: No tenderness upon palpation of ulceration site or wound periphery - Neurological Exam Neurological exam: Alert, Oriented x3 - Psychiatric Exam Psychiatric exam: Normal Affect, Normal Mood Results - Vital Signs Recent Vital Signs: Last Vital Signs Temp 97.6 F 12/14/16 07:19 Pulse 78 12/14/16 07:19 Resp 20 12/14/16 07:19 BP 159/80 H 12/14/16 09:00 Pulse Ox 97 12/14/16 07:19 - Labs Result Diagrams: 12/12/16 05:45 12/12/16 05:45 Labs: Laboratory Results - last 24 hr 12/13/16 12/13/16 12/14/16 15:36 21:42 06:16 POC Glucose (mg/dL) 171 H 106 111 H 12/14/16 10:32 POC Glucose (mg/dL) 130 H Assessment & Plan - Assessment and Plan (Free Text) Assessment: 86 y/o male with PMHx of diabetes, vascular dementia seen by podiatry for superficial DM ulceration and elongated dystrophic toenails. Plan: Pt seen and evaluated at bedside Discussed plan in detail with Dr. Knowles Chart, labs and vitals reviewed- afebrile, WBC 5.1 Aseptic debridement of dystrophic toenails using sterile nippers Pt tolerated without incident Dressed wound with xeroform and DSD applied to L foot Will order surgical shoe, patient to wear at all times for ambulation Weight bearing as tolerated to L foot with surgical shoe Podiatry will continue to follow Thank you for this consult
[2016-12-15] MEDS: Insulin Regular 100 units/ml SC SCH ×2 (00:48→09:42)
[2016-12-15 06:34] LABS: HEMOGLOBIN 13.9 g/dL (12.0-18.0); MEAN CELL VOLUME 95.2 fl (80.0-94.0); MEAN CORPUSCULAR HEMOGLOBIN 33.5 pg (27.0-31.0); MEAN CORPUSCULAR HGB CONC 35.2 g/dL (33.0-37.0); RBC 4.14 Mil/uL (4.40-5.90); RED CELL DISTRIBUTION WIDTH 12.6 % (11.5-14.5)
[2016-12-15 06:45] LABS: BLOOD UREA NITROGEN 18 mg/dl (9-20); CALCIUM 9.2 mg/dL (8.4-10.2); GFR AFRICAN-AMERICAN > 60; GFR NON-AFRICAN AMERICAN > 60
[2016-12-15 07:24] VITALS: BP 164/83; PULSE 77; TEMP 98.6; O2SAT 98
--- NOTE | 2016-12-15 08:30 | CP.PCM.PN ---
Subjective - Date & Time of Evaluation Date of Evaluation: 12/15/16 Time of Evaluation: 08:28 - Subjective Subjective: 86 y/o male with PMHx of DM, altered mental status and vascular dementia s/p is seen for superficial left foot sub met 1 ulcer. Pt is resting comfortably in bedside chair and has no complaints of pain at this time. Nurse informs us that the patient removed the dressing last night. Patient has altered mental status and has difficulty understanding that we would like him to keep the dressing on at all times. Patient is a fall risk and is being monitored electronically 1:1. Patient has no other pedal complaints at this time. Objective - Vital Signs/Intake and Output Vital Signs (last 24 hours): Temp Pulse Resp BP Pulse Ox 98.6 F 77 20 164/83 H 98 12/15/16 07:23 12/15/16 07:23 12/15/16 07:23 12/15/16 07:23 12/15/16 07:23 - Medications Medications: Current Medications Aspirin (Ecotrin) 81 mg PO DAILY FOR[facility]LY [facility], [facility] Last Admin: 12/14/16 09:01 Dose: 81 mg Bacitracin (Bacitracin Oint) 1 applic TOP TID [facility], [facility] Last Admin: 12/14/16 17:38 Dose: 1 applic Collagenase (Santyl) 1 applic TOP DAILY [facility], [facility]–1983 Enoxaparin Sodium (Lovenox) 40 mg SC DAILY MALIA PRN Reason: Protocol Last Admin: 12/14/16 09:00 Dose: 40 mg Insulin Human Regular (Humulin R) 0 units SC ACCU-CHECK MALIA PRN Reason: Protocol Last Admin: 12/15/16 00:48 Dose: Not Given Lisinopril (Zestril) 40 mg PO DAILY FOR[facility], [facility] Last Admin: 12/14/16 09:00 Dose: 40 mg Lorazepam (Ativan) 1 mg IVP Q6 PRN PRN Reason: Agitation Last Admin: 12/12/16 19:44 Dose: 1 mg Metformin HCl (Glucophage) 1,000 mg PO BIDWM [facility], [facility] Last Admin: 12/14/16 17:36 Dose: 1,000 mg Quetiapine Fumarate (Seroquel) 25 mg PO QPM FOR[facility], [facility] Last Admin: 12/14/16 18:15 Dose: 25 mg Vitamin A (Vitamin A & D Oint Ud Foilpak) 1 ea TOP BID [facility] Last Admin: 12/14/16 17:38 Dose: 1 ea - Labs Labs: 12/15/16 05:20 12/15/16 05:20 PT 11.4 Seconds (9.8-13.1) 12/09/16 13:20 INR 1.0 (0.9-1.2) 12/09/16 13:20 APTT 27.4 Seconds (25.6-37.1) 12/09/16 13:20 - Constitutional Appears: Well, Non-toxic, No Acute Distress - Extremities Exam Additional comments: Left lower extremity focused exam: Vasc: DP/PT 2/4. Temperature gradient WNL. CFT < 3 sec to all digits. No pedal edema. Neuro: Unable to obtain due to altered mental status Derm: Superficial 1.5cm in diameter circular ulceration present sub met 1 L foot. Wound measures 0.1cm in depth. Sanguinous drainage noted from wound bed. Wound base is 90% granular, 10% fibrotic. Post-debridement of subcutaneous tissue revealed healthy granular wound bed 0.1cm deep. No purulence, no malodor , no fluctuance, no surrounding erythema, no cellulitis, no probe to bone, no clinical signs of infection. Elongated dystrophic toenails x 10. Ortho: No tenderness upon palpation of ulceration site or surrounding area - Neurological Exam Neurological Exam: Alert, Awake, Oriented x3 - Psychiatric Exam Psychiatric exam: Normal Affect, Normal Mood Assessment and Plan - Assessment and Plan (Free Text) Assessment: 86 y/o male with PMHx of diabetes, vascular dementia seen by podiatry for superficial DM ulceration and elongated dystrophic toenails. Plan: Pt seen and evaluated at bedside Discussed plan in detail with Dr. Knowles Chart, labs and vitals reviewed- afebrile, WBC 5.0 Performed excisional debridement at bedside with removal of non-viable tissue to left sub met 1 ulceration down to subcutaneous tissue using sterile #15 blade. Wound measures 1.5cm in diameter with a depth of 0.1cm. Pt tolerated procedure well without incident Dressed wound with Santyl and DSD to L foot Awaiting x-ray read of L foot Patient to continue WBAT to L foot with surgical shoe Podiatry will continue to follow
[2016-12-15] MEDS ORDERED: Santyl Collagenase OINTMENT TOP SCH (09:00)
[2016-12-15] MEDS: Bacitracin OINT 15GM TOP SCH (10:01)
[2016-12-15] MEDS: Enoxaparin 40 mg Syringe SC SCH (10:02)
[2016-12-15] MEDS: Vitamins A & D Oint UD Foilpak TOP SCH (10:03)
--- NOTE | 2016-12-15 10:18 | CP.PCM.DIS ---
<LesRenee - Last Filed: 12/15/16 13:12> Provider - Provider Date of Admission: 12/09/16 17:39 Attending physician: Moris Short MD Time Spent in preparation of Discharge (in minutes): 45 Diagnosis - Discharge Diagnosis (1) Diabetes Status: Chronic Comment: Stable, c/w medication. (2) Hypertension Status: Chronic Comment: Chronic, c/w medication (3) Dementia Status: Chronic Priority: High Comment: Unspecified etiology (4) Ulcer of foot, limited to breakdown of skin Status: Acute Comment: Do not suspect due to diabetes, more likely due to poor nutrition and living conditions. Hospital Course - Lab Results Lab Results: Micro Results 12/09/16 21:20 Urine,Catheterized Urine Culture - Final No Growth (<1,000 CFU/ML) Most Recent Lab Values WBC 5.0 K/uL (4.8-10.8) 12/15/16 05:20 RBC 4.14 Mil/uL (4.40-5.90) L 12/15/16 05:20 Hgb 13.9 g/dL (12.0-18.0) 12/15/16 05:20 Hct 39.4 % (35.0-51.0) 12/15/16 05:20 MCV 95.2 fl (80.0-94.0) H 12/15/16 05:20 MCH 33.5 pg (27.0-31.0) H 12/15/16 05:20 MCHC 35.2 g/dL (33.0-37.0) 12/15/16 05:20 RDW 12.6 % (11.5-14.5) 12/15/16 05:20 Plt Count 173 K/uL (130-400) 12/15/16 05:20 MPV 9.1 fl (7.2-11.7) 12/09/16 13:20 Neut % (Auto) 76.4 % (50.0-75.0) H 12/09/16 13:20 Lymph % (Auto) 13.2 % (20.0-40.0) L 12/09/16 13:20 [place] % (Auto) 8.2 % (0.0-10.0) 12/09/16 13:20 Eos % (Auto) 1.6 % (0.0-4.0) 12/09/16 13:20 Baso % (Auto) 0.6 % (0.0-2.0) 12/09/16 13:20 Neut # 6.9 K/uL (1.8-7.0) 12/09/16 13:20 Lymph # 1.2 K/uL (1.0-4.3) 12/09/16 13:20 [place] # 0.7 K/uL (0.0-0.8) 12/09/16 13:20 Eos # 0.1 K/uL (0.0-0.7) 12/09/16 13:20 Baso # 0.1 K/uL (0.0-0.2) 12/09/16 13:20 PT 11.4 Seconds (9.8-13.1) 12/09/16 13:20 INR 1.0 (0.9-1.2) 12/09/16 13:20 APTT 27.4 Seconds (25.6-37.1) 12/09/16 13:20 Sodium 139 mmol/l (132-148) 12/15/16 05:20 Potassium 3.5 MMOL/L (3.6-5.0) L 12/15/16 05:20 Chloride 102 mmol/L (98-107) 12/15/16 05:20 Carbon Dioxide 28 mmol/L (22-30) 12/15/16 05:20 Anion Gap 13 (10-20) 12/15/16 05:20 BUN 18 mg/dl (9-20) 12/15/16 05:20 Creatinine 0.8 mg/dL (0.8-1.5) 12/15/16 05:20 Est GFR ( Amer) > 60 12/15/16 05:20 Est GFR (Non-Af Amer) > 60 12/15/16 05:20 POC Glucose (mg/dL) 102 mg/dL (65-110) 12/15/16 05:53 Random Glucose 103 mg/dL (75-110) 12/15/16 05:20 Hemoglobin A1c 9.2 % (4.2-6.5) H 12/10/16 07:00 Calcium 9.2 mg/dL (8.4-10.2) 12/15/16 05:20 Total Bilirubin 0.5 mg/dl (0.2-1.3) 12/12/16 05:45 AST 53 U/L (17-59) 12/12/16 05:45 ALT 73 U/L (21-72) H 12/12/16 05:45 Alkaline Phosphatase 47 U/L (38-126) 12/12/16 05:45 Troponin I 0.0200 ng/mL (0.00-0.120) 12/09/16 13:20 Total Protein 6.4 G/DL (6.3-8.2) 12/12/16 05:45 Albumin 3.2 g/dL (3.5-5.0) L 12/12/16 05:45 Globulin 3.2 gm/dL (2.2-3.9) 12/12/16 05:45 Albumin/Globulin Ratio 1.0 (1.0-2.1) 12/12/16 05:45 Triglycerides 119 mg/DL (0-149) 12/10/16 07:00 Cholesterol 168 mg/dL (0-199) 12/10/16 07:00 LDL Cholesterol Direct 86 mg/dL (0-129) 12/10/16 07:00 HDL Cholesterol 48 MG/DL (30-70) 12/10/16 07:00 Lipase 90 U/L (23-300) 12/09/16 13:20 Vitamin B12 637 pg/mL (239-931) 12/10/16 07:00 Urine Color Yellow (YELLOW) 12/09/16 21:20 Urine Clarity Clear (Clear) 12/09/16 21:20 Urine pH 6.0 (5.0-8.0) 12/09/16 21:20 Ur Specific [place] 1.022 (1.003-1.030) 12/09/16 21:20 Urine Protein 100 mg/dL (NEGATIVE) 12/09/16 21:20 Urine Glucose (UA) >=500 mg/dL (Normal) 12/09/16 21:20 Urine Ketones Trace mg/dL (NEGATIVE) 12/09/16 21:20 Urine Blood Moderate (NEGATIVE) 12/09/16 21:20 Urine Nitrate Negative (NEGATIVE) 12/09/16 21:20 Urine Bilirubin Negative (NEGATIVE) 12/09/16 21:20 Urine Urobilinogen 0.2-1.0 mg/dL (0.2-1.0) 12/09/16 21:20 Ur Leukocyte Esterase Neg Trudy/uL (Negative) 12/09/16 21:20 Urine RBC (Auto) 4 /hpf (0-3) H 12/09/16 21:20 Urine Microscopic WBC 2 /hpf (0-5) 12/09/16 21:20 Hyaline Casts 3-5 /hpf (0-2) H 12/09/16 21:20 Urine Opiates Screen Negative (NEGATIVE) 12/09/16 21:20 Urine Methadone Screen Negative (NEGATIVE) 12/09/16 21:20 Ur Barbiturates Screen Negative (NEGATIVE) 12/09/16 21:20 Ur Phencyclidine Scrn Negative (NEGATIVE) 12/09/16 21:20 Ur Amphetamines Screen Negative (NEGATIVE) 12/09/16 21:20 U Benzodiazepines Scrn Negative (NEGATIVE) 12/09/16 21:20 U Oth Cocaine Metabols Negative (NEGATIVE) 12/09/16 21:20 U Cannabinoids Screen Negative (NEGATIVE) 12/09/16 21:20 Alcohol, Quantitative < 10 mg/dl (0-10) 12/09/16 13:20 - Hospital Course Hospital Course: Patient seen and examined at bedside with attending. 86M admitted for altered mental status. Neurological work-up without acute findings. Patient found to be hypertensive and diabetic and appropriate medications started. In addition, patient was started on Seroquel for dementia with agitation with good results. Patient is stable for discharge to [facility] on current medications. Consultants: Dr De La Rosa (Neurology) Dr Knowles (Podiatry) Dr Falk (Psychiatry) Discharge Exam - Head Exam Head Exam: ATRAUMATIC, NORMAL INSPECTION - Eye Exam Eye Exam: EOMI, PERRL - ENT Exam ENT Exam: Mucous Membranes Moist - Respiratory Exam Respiratory Exam: Clear to PA & Lateral, NORMAL BREATHING PATTERN. absent: Rales, Wheezes - Cardiovascular Exam Cardiovascular Exam: REGULAR RHYTHM. absent: JVD - GI/Abdominal Exam GI & Abdominal Exam: Normal Bowel Sounds, Soft. absent: Tenderness - Extremities Exam Extremities exam: normal capillary refill, pedal pulses present Additional comments: Ulcer at LEFT plantar hallux does not appear to be secondary to diabetes, more likely due to state of health at time he was found as there are multiple areas along legs in various stages of healing. - Neurological Exam Neurological exam: Alert - Psychiatric Exam Psychiatric exam: Normal Affect - Skin Skin Exam: Normal Color, Warm Discharge Plan - Follow Up Plan Condition: STABLE Disposition: TRANSF TO SNF Patient education suggested?: Yes Instructions: Hypertension (DC), Altered Mental Status (GEN) Referrals: Negar Knowles DPM [Staff Provider] - 1 Week Moris Short MD [Staff Provider] - 1 Week <Moris Short - Last Filed: 12/22/16 16:09> Provider - Provider Date of Admission: 12/09/16 17:39 Attending physician: Moris Short MD Hospital Course - Lab Results Lab Results: Micro Results 12/09/16 21:20 Urine,Catheterized Urine Culture - Final No Growth (<1,000 CFU/ML) Most Recent Lab Values WBC 5.0 K/uL (4.8-10.8) 12/15/16 05:20 RBC 4.14 Mil/uL (4.40-5.90) L 12/15/16 05:20 Hgb 13.9 g/dL (12.0-18.0) 12/15/16 05:20 Hct 39.4 % (35.0-51.0) 12/15/16 05:20 MCV 95.2 fl (80.0-94.0) H 12/15/16 05:20 MCH 33.5 pg (27.0-31.0) H 12/15/16 05:20 MCHC 35.2 g/dL (33.0-37.0) 12/15/16 05:20 RDW 12.6 % (11.5-14.5) 12/15/16 05:20 Plt Count 173 K/uL (130-400) 12/15/16 05:20 MPV 9.1 fl (7.2-11.7) 12/09/16 13:20 Neut % (Auto) 76.4 % (50.0-75.0) H 12/09/16 13:20 Lymph % (Auto) 13.2 % (20.0-40.0) L 12/09/16 13:20 [place] % (Auto) 8.2 % (0.0-10.0) 12/09/16 13:20 Eos % (Auto) 1.6 % (0.0-4.0) 12/09/16 13:20 Baso % (Auto) 0.6 % (0.0-2.0) 12/09/16 13:20 Neut # 6.9 K/uL (1.8-7.0) 12/09/16 13:20 Lymph # 1.2 K/uL (1.0-4.3) 12/09/16 13:20 [place] # 0.7 K/uL (0.0-0.8) 12/09/16 13:20 Eos # 0.1 K/uL (0.0-0.7) 12/09/16 13:20 Baso # 0.1 K/uL (0.0-0.2) 12/09/16 13:20 PT 11.4 Seconds (9.8-13.1) 12/09/16 13:20 INR 1.0 (0.9-1.2) 12/09/16 13:20 APTT 27.4 Seconds (25.6-37.1) 12/09/16 13:20 Sodium 139 mmol/l (132-148) 12/15/16 05:20 Potassium 3.5 MMOL/L (3.6-5.0) L 12/15/16 05:20 Chloride 102 mmol/L (98-107) 12/15/16 05:20 Carbon Dioxide 28 mmol/L (22-30) 12/15/16 05:20 Anion Gap 13 (10-20) 12/15/16 05:20 BUN 18 mg/dl (9-20) 12/15/16 05:20 Creatinine 0.8 mg/dL (0.8-1.5) 12/15/16 05:20 Est GFR ( Amer) > 60 12/15/16 05:20 Est GFR (Non-Af Amer) > 60 12/15/16 05:20 POC Glucose (mg/dL) 174 mg/dL (65-110) H 12/15/16 11:04 Random Glucose 103 mg/dL (75-110) 12/15/16 05:20 Hemoglobin A1c 9.2 % (4.2-6.5) H 12/10/16 07:00 Calcium 9.2 mg/dL (8.4-10.2) 12/15/16 05:20 Total Bilirubin 0.5 mg/dl (0.2-1.3) 12/12/16 05:45 AST 53 U/L (17-59) 12/12/16 05:45 ALT 73 U/L (21-72) H 12/12/16 05:45 Alkaline Phosphatase 47 U/L (38-126) 12/12/16 05:45 Troponin I 0.0200 ng/mL (0.00-0.120) 12/09/16 13:20 Total Protein 6.4 G/DL (6.3-8.2) 12/12/16 05:45 Albumin 3.2 g/dL (3.5-5.0) L 12/12/16 05:45 Globulin 3.2 gm/dL (2.2-3.9) 12/12/16 05:45 Albumin/Globulin Ratio 1.0 (1.0-2.1) 12/12/16 05:45 Triglycerides 119 mg/DL (0-149) 12/10/16 07:00 Cholesterol 168 mg/dL (0-199) 12/10/16 07:00 LDL Cholesterol Direct 86 mg/dL (0-129) 12/10/16 07:00 HDL Cholesterol 48 MG/DL (30-70) 12/10/16 07:00 Lipase 90 U/L (23-300) 12/09/16 13:20 Vitamin B12 637 pg/mL (239-931) 12/10/16 07:00 Urine Color Yellow (YELLOW) 12/09/16 21:20 Urine Clarity Clear (Clear) 12/09/16 21:20 Urine pH 6.0 (5.0-8.0) 12/09/16 21:20 Ur Specific [place] 1.022 (1.003-1.030) 12/09/16 21:20 Urine Protein 100 mg/dL (NEGATIVE) 12/09/16 21:20 Urine Glucose (UA) >=500 mg/dL (Normal) 12/09/16 21:20 Urine Ketones Trace mg/dL (NEGATIVE) 12/09/16 21:20 Urine Blood Moderate (NEGATIVE) 12/09/16 21:20 Urine Nitrate Negative (NEGATIVE) 12/09/16 21:20 Urine Bilirubin Negative (NEGATIVE) 12/09/16 21:20 Urine Urobilinogen 0.2-1.0 mg/dL (0.2-1.0) 12/09/16 21:20 Ur Leukocyte Esterase Neg Trudy/uL (Negative) 12/09/16 21:20 Urine RBC (Auto) 4 /hpf (0-3) H 12/09/16 21:20 Urine Microscopic WBC 2 /hpf (0-5) 12/09/16 21:20 Hyaline Casts 3-5 /hpf (0-2) H 12/09/16 21:20 Urine Opiates Screen Negative (NEGATIVE) 12/09/16 21:20 Urine Methadone Screen Negative (NEGATIVE) 12/09/16 21:20 Ur Barbiturates Screen Negative (NEGATIVE) 12/09/16 21:20 Ur Phencyclidine Scrn Negative (NEGATIVE) 12/09/16 21:20 Ur Amphetamines Screen Negative (NEGATIVE) 12/09/16 21:20 U Benzodiazepines Scrn Negative (NEGATIVE) 12/09/16 21:20 U Oth Cocaine Metabols Negative (NEGATIVE) 12/09/16 21:20 U Cannabinoids Screen Negative (NEGATIVE) 12/09/16 21:20 Alcohol, Quantitative < 10 mg/dl (0-10) 12/09/16 13:20
[2016-12-15] MEDS ORDERED: Potassium Chloride 20 mEq ER Tab PO ONE (11:12)
--- NOTE | 2016-12-15 11:40 | RAD ---
PROCEDURE: Left Foot Radiographs. HISTORY: diabetic ulcer left foot COMPARISON: None. FINDINGS: BONES: There is diffuse bone demineralization. There is no acute fracture or bone destruction. There is a small plantar calcaneal spur. There is a prominent dorsal calcaneal enthesophyte. JOINTS: Normal. SOFT TISSUES: Normal. OTHER FINDINGS: Atherosclerotic vascular calcifications are present. IMPRESSION: No acute fracture or dislocation.
== END 2016-12-15 15:03 | DRG 876 ==
LOC: H.ER 12:08 → H.ERHOLD 17:39 → H.MEDSURG1 23:07
PROVIDERS: ADMIT Internal Medicine; ATTEND Internal Medicine
PROC: 0JBR0ZZ Excision of Left Foot Subcutaneous Tissue and Fascia, Open Approach (ICD-10-PCS; principal; 2016-12-15)
DX: F01.51 Vascular dementia, unspecified severity, with behavioral disturbance (principal); L89.102 Pressure ulcer of unspecified part of back, stage 2; E10.621 Type 1 diabetes mellitus with foot ulcer; L97.529 Non-pressure chronic ulcer of other part of left foot with unspecified severity; E86.0 Dehydration; I10 Essential (primary) hypertension; L60.3 Nail dystrophy